=== PATIENT | female | born 1950 | race Caucasian/White ===

== ENCOUNTER 2017-09-09 16:20 | Emergency (ER) | payer BC ==
--- NOTE | 2017-09-09 16:29 | PDOC ---
History of Present Illness - General History Source: Patient Exam Limitations: No Limitations - History of Present Illness Initial Comments: 09/09/17 17:09 Patient is a 67 year old woman with a significant past medical history of History of thyroidectomy, Hyperlipidemia, Osteoporosis who presents to the ED with complaints of right hand pain s/p laceration. Patient reports washing water glass this evening when the glass accidently slipped cutting between the right index and right middle fingers. Patient reports following the laceration pain was immediate. She states she immediately washed the laceration and covered it with sterile gaws before coming into the ED for further evaluation. Patient states laceration is currently not actively bleeding. Denies chest pain, SOB. Denies fever, chills. Denies nausea, vomiting. Denies right hand numbness, tingles. Denies any other symptoms. Allergies: None Social history: No smoking. Social drinker. No illicit drugs. Surgical history: None PMD: Dr. Burciaga <Goyo High - Last Filed: 09/09/17 17:09> <Edy Escobedo - Last Filed: 09/09/17 18:47> - General Chief Complaint: Laceration Stated Complaint: LEFT HAND LACERATION Time Seen by Provider: 09/09/17 16:23 Past History <Goyo High - Last Filed: 09/09/17 17:09> - Past Medical History Thyroid Disease: Yes - Immunization History Td Vaccination: Yes Immunization Up to Date: No - Suicide/Smoking/Psychosocial Hx Smoking Status: No Smoking History: Never smoked Number of Cigarettes Smoked Daily: 0 <Edy Escobedo - Last Filed: 09/09/17 18:47> - Past Medical History Allergies/Adverse Reactions: Allergies Allergy/AdvReac Type Severity Reaction Status Date / Time No Known Allergies Allergy Verified 09/09/17 16:22 Home Medications: Ambulatory Orders Levothyroxine [Synthroid] 75 mcg PO DAILY 02/25/12 Simvastatin [Zocor] 20 mg PO DAILY 02/25/12 Metoprolol Succinate [Toprol Xl -] 25 mg PO DAILY 09/09/17 Raloxifene HCl [Evista (Nf) -] 60 mg PO DAILY 09/09/17 Review of Systems - Review of Systems Able to Perform ROS?: Yes Comments:: 09/09/17 17:09 CONSTITUTIONAL: Absent: Fever, Chills, Diaphoresis, Generalized Weakness, Malaise, Loss of Appetite HEENT: Absent: Rhinorrhea, Nasal Congestion, Throat Pain, Throat Swelling, Difficulty Swallowing, Mouth Swelling, Ear Pain, Eye Pain, Visual Changes CARDIOVASCULAR: Absent: Chest Pain, Syncope, Palpitations, Irregular Heart Rate, Lightheadedness , Peripheral Edema MUSCULOSKELETAL: Absent: Myalgia, Arthralgia, Joint Swelling, Back pain, Neck Pain SKIN: +Right dorsal hand laceration. Absent: Rash, Itching, Pallor All Other Systems: Reviewed and Negative <Goyo High - Last Filed: 09/09/17 17:09> *Physical Exam - Vital Signs Last Vital Signs Temp Pulse Resp BP Pulse Ox 98.3 F 71 18 117/78 98 09/09/17 16:20 09/09/17 16:20 09/09/17 16:20 09/09/17 16:20 09/09/17 16:20 - Physical Exam Comments: 09/09/17 17:10 GENERAL: The patient is awake, alert, and fully oriented, in no acute distress. HEAD: Normal with no signs of trauma. EYES: Pupils equal, round and reactive to light, extraocular movements intact, sclera anicteric, conjunctiva clear. EXTREMITIES: +2 cm laceration on right hand, clean and linear over the second MCP joint. +Tendon strength intact. +sensation intact. No foreign body on palpation or exploration. Normal range of motion, no edema. Sensation intact. Circulation intact. NEUROLOGICAL: Normal speech, normal gait. PSYCH: Normal mood, normal affect. SKIN: Warm, Dry, normal turgor, no rashes or lesions noted <Goyo High - Last Filed: 09/09/17 17:09> Procedures - Laceration/Wound Repair Right Hand Progress: 09/09/17 18:45 Patient presents after a laceration to her dorsal right hand after washing dishes. The glass broke and cut her on the dorsal surface between the second and third MCP joints. She denies any foreign body sensation. Tendon strength is intact. Sensation is intact. Skin was cleansed with saline irrigation. 2% lidocaine with sodium bicarbonate local was injected. High pressure, high volume saline lavage was performed. Wound exploration without any signs of foreign body. 5-0 nylon, simple interrupted 4 were placed over the 2 cm laceration. Bacitracin and dry sterile dressing was applied. Patient advised regarding signs of infection and indications for follow-up. Suture removal advised in 10-14 days. <Edy Escobedo - Last Filed: 09/09/17 18:47> Medical Decision Making - Medical Decision Making 09/09/17 18:46 Patient presents with a laceration of the right hand. Given that the wound was wide opening could be easily explored, x-ray of the hand was deferred. No foreign body found. Laceration repair performed after careful saline lavage and expiration. Patient advised regarding treatment and follow-up. Impression: Right hand laceration Suture closure performed. <Edy Escobedo - Last Filed: 09/09/17 18:47> *DC/Admit/Observation/Transfer - Attestations Scribe Attestion: 09/09/17 17:10 Documentation prepared by Goyo High, acting as biomedical electronics technician for Edy Escobedo MD/. <Goyo High - Last Filed: 09/09/17 17:09> - Discharge Dispostion Admit: No - Attestations Physician Attestion: 09/09/17 18:47 The scribe's documentation has been prepared under my direction and personally reviewed by me in its entirety. I have confirmed that the note above accurately reflects all work, treatment, procedures, and medical decision- making performed by me. <Edy Escobedo - Last Filed: 09/09/17 18:47> Diagnosis at time of Disposition: Hand laceration Qualifiers: Encounter type: initial encounter Foreign body presence: without foreign body Laterality: right Qualified Code(s): S61.411A - Laceration without foreign body of right hand, initial encounter - Discharge Dispostion Disposition: HOME Condition at time of disposition: Stable - Referrals Referrals: Kristina Burciaga MD [Primary Care Provider] - - Patient Instructions Printed Discharge Instructions: DI for Laceration Repair Additional Instructions: Today you were evaluated for a laceration on your right hand. The wound was explored and there was no glass or foreign body found. The tendons were intact and the nerves were intact as well. The wound was cleansed after anesthetic. 4 simple sutures were placed. Watch for any redness, swelling, pus, or red streaks. These may be signs of infection and you should get the wound checked immediately if there are any signs of infection. Sutures should be removed in 10-12 days. You may go to your primary care provider, or return to the emergency department as you prefer. - Post Discharge Activity
[2017-09-09 16:30] VITALS: BP 117/78; PULSE 71; TEMP 98.3; BMI 22.2
[2017-09-09] MEDS ORDERED: LIDOCAINE HCL 2% (20ML MULTI-DOSE VIAL) NR ONE (16:39)
[2017-09-09] MEDS ORDERED: SODIUM BICARBONATE 8.4% 50 MEQ/50 ML VIAL ONE (16:40)
== END 2017-09-09 17:00 | disposition home or self-care (01) ==
LOC: FER 16:20
PROC: 0HQFXZZ Repair Right Hand Skin, External Approach (ICD-10-PCS; principal; 2017-09-09)
DX: S61.411A Laceration without foreign body of right hand, initial encounter (principal); W25.XXXA Contact with sharp glass, initial encounter; Y93.G1 Activity, food preparation and clean up; Y92.9 Unspecified place or not applicable; E78.5 Hyperlipidemia, unspecified; M81.0 Age-related osteoporosis without current pathological fracture; E07.9 Disorder of thyroid, unspecified
CPT/HCPCS: 12001-25; 99284-25

== ENCOUNTER 2023-03-29 08:16 | Day surgery (SDC) | payer OTHER ==
[2023-03-22 18:42] VITALS: BMI 22.6
[2023-03-29] MEDS ORDERED: TETRACAINE 0.5% OPHTH SOLN 2 ML BOTTLE ONE (08:25)
[2023-03-29] MEDS ORDERED: NEO/POLYMYX B SULF/DEXAMETH OPHTHALMIC 5ML BOTTLE ONE (08:25)
[2023-03-29] MEDS ORDERED: BSS (NA/CA/MG/K) BALANCED SALT SOLUTION OPHTH SOLN 15 ML BOTTLE ONE (08:25)
[2023-03-29] MEDS ORDERED: LIDOCAINE HCL/PF 1% SDV 5ML VIAL ONE (08:25)
[2023-03-29] MEDS ORDERED: CARBACHOL 0.01% INTRA-OCULAR 1.5 ML VIAL ONE (08:25)
[2023-03-29] MEDS ORDERED: MIDAZOLAM HCL 2 MG/2 ML SINGLE DOSE VIAL ONE (08:36)
[2023-03-29] MEDS: TROPICAMIDE 1% OPHTH SOLN 15 ML BOTTLE ONE ×3 (08:40→08:50)
[2023-03-29] MEDS: PHENYLEPHRINE 2.5% OPTHALMIC DROP 2ML BOTTLE ONE ×3 (08:40→08:50)
[2023-03-29] MEDS: CYCLOPENTOLATE 2% OPHTH SOLN 2 ML BOTTLE ONE ×3 (08:40→08:50)
[2023-03-29] MEDS: CIPROFLOXACIN 0.3% EYE DROPS 5 ML BOTTLE ONE ×3 (08:40→08:50)
[2023-03-29 10:10] VITALS: RESP 18; TEMP 97.9
[2023-03-29 10:30] VITALS: BP 121/69; PULSE 77
== END 2023-03-29 10:25 | disposition home or self-care (01) ==
LOC: FASU 08:16
PROVIDERS: ATTEND Ophthalmology
PROC: 08RK3JZ Replacement of Left Lens with Synthetic Substitute, Percutaneous Approach (ICD-10-PCS; principal; 2023-03-29 09:31)
DX: H26.8 Other specified cataract (principal)
CPT/HCPCS: 66984; V2632

== ENCOUNTER 2023-06-07 07:06 | Day surgery (SDC) | payer OTHER ==
[2023-06-02 13:33] VITALS: BMI 22.6
[2023-06-07] MEDS ORDERED: PHENYLEPHRINE/KETOROLAC 4 ML VIAL IO ONE (07:15)
[2023-06-07] MEDS ORDERED: CARBACHOL 0.01% INTRA-OCULAR 1.5 ML VIAL ONE (07:15)
[2023-06-07] MEDS ORDERED: BSS (NA/CA/MG/K) BALANCED SALT SOLUTION OPHTH SOLN 15 ML BOTTLE ONE (07:15)
[2023-06-07] MEDS ORDERED: TETRACAINE 0.5% OPHTH SOLN 2 ML BOTTLE ONE (07:15)
[2023-06-07] MEDS ORDERED: NEO/POLYMYX B SULF/DEXAMETH OPHTHALMIC 5ML BOTTLE ONE (07:15)
[2023-06-07] MEDS ORDERED: LIDOCAINE 1% P/F 10 MG/ML VIAL ONE (07:15)
[2023-06-07] MEDS ORDERED: EPINEPHrine/PF 1 MG/1 ML (1:1,000) AMPULE ONE (07:15)
[2023-06-07] MEDS: PHENYLEPHRINE 2.5% OPTHALMIC DROP 2ML BOTTLE ONE ×3 (07:45→07:55)
[2023-06-07] MEDS: CIPROFLOXACIN 0.3% EYE DROPS 5 ML BOTTLE ONE ×3 (07:45→07:55)
[2023-06-07] MEDS: TROPICAMIDE 1% OPHTH SOLN 15 ML BOTTLE ONE ×3 (07:45→07:55)
[2023-06-07] MEDS: CYCLOPENTOLATE 2% OPHTH SOLN 2 ML BOTTLE ONE ×3 (07:45→07:55)
[2023-06-07] MEDS ORDERED: MIDAZOLAM HCL 2 MG/2 ML SINGLE DOSE VIAL ONE ×2 (08:58→09:01)
[2023-06-07 10:09] VITALS: RESP 16; TEMP 97.7
[2023-06-07 10:19] VITALS: BP 110/62; PULSE 81
== END 2023-06-07 10:10 | disposition home or self-care (01) ==
LOC: FASU 07:06
PROVIDERS: ATTEND Ophthalmology
PROC: 08RJ3JZ Replacement of Right Lens with Synthetic Substitute, Percutaneous Approach (ICD-10-PCS; principal; 2023-06-07 09:02)
DX: H26.8 Other specified cataract (principal)
CPT/HCPCS: 66984; V2632; J1097